=== PATIENT | female | born 1990 | race Caucasian/White ===

== ENCOUNTER 2016-12-14 11:13 | Emergency (ER) | payer OTHER ==
[~2016-12-14] VITALS: Ht 162.6 cm; Wt 88.5 kg
[2016-12-14 11:17] VITALS: BP_SYST 145
== END 2016-12-14 11:40 ==
LOC: SED 11:13
DX: Z02.83 Encounter for blood-alcohol and blood-drug test (principal)
CPT/HCPCS: 99283